=== PATIENT | female | born 1995 | race Hispanic/Latino ===

== ENCOUNTER 2019-02-25 14:46 | Emergency (ER) | payer SELFPAY ==
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
== END 2019-02-25 15:55 | disposition home or self-care (01) ==
LOC: ERS 14:46
DX: S00.83XA Contusion of other part of head, initial encounter (principal); S80.12XA Contusion of left lower leg, initial encounter; S80.11XA Contusion of right lower leg, initial encounter; V89.2XXA Person injured in unspecified motor-vehicle accident, traffic, initial encounter
CPT/HCPCS: 70450; 72125

== ENCOUNTER 2019-11-02 10:00 | Emergency (ER) | payer OTHER, SELFPAY | END 2019-11-02 11:02 | disposition home or self-care (01) | LOC: ERS 10:00 | DX: Z20.828 Contact with and (suspected) exposure to other viral communicable diseases (principal) | CPT/HCPCS: 87635; 99283; U0003 ==